=== PATIENT | male | born 1955 | race Caucasian/White ===

== ENCOUNTER 2017-03-05 20:38 | Inpatient (IN) ==
[2017-03-05] MEDS ORDERED: ATIVAN ONE (20:40)
[2017-03-05] MEDS ORDERED: ATIVAN IM ONE (20:57)
[2017-03-05 21:08] LABS: ALLEN TEST YES; BE -0.3 mmoll (-3.0-3.0); BLOOD TYPE ARTERIAL; DRAW SITE R BRACHIAL; METHB 1.2 % (0.0-1.5); MODALITY ROOM AIR; O2(CT) 18.3 mL/dL (15.0-23.0); PCO2(98.6) 38 mmHg (35-45); PO2(98.6) 84 mmHg (60-100); SAMPLE BLOOD; SAO2 99.4 % (95.0-100.0); THB 13.8 g/dL (11.5-17.4); pH(98.6) 7.41 (7.35-7.45)
[2017-03-05] MEDS ORDERED: NICODERM PATCH TD ONE (21:15)
[2017-03-05 21:34] LABS: MANUAL DIFF NEEDED? NO
[2017-03-05 21:39] LABS: BASO% 0.5 % (0.0-0.8); EOS# 0.12 X1000 (0.0-0.7); EOS% 1.4 % (0.0-10.0); HEMATOCRIT 40.8 % (42.0-52.0); HEMOGLOBIN 13.8 g/dL (14.0-18.0); IMM GRAN# 0.02 X1000 (0.0-0.04); IMM GRAN% 0.2 % (0.0-0.5); LYMPH# 0.74 X1000 (1.2-3.4); LYMPH% 8.3 % (20.5-51.1); MCH 32.3 PG (27-31); MCHC 33.8 g/dL (33-37); MCV 95.6 FL (81-99); MONO% 6.8 % (1.7-9.3); MPV 8.8 FL (7.4-10.4); NEUT% 82.8 % (42.2-75.2); PLT 372 X1000 (130-400); RBC 4.27 XMIL (4.7-6.1)
[2017-03-05 21:51] LABS: INR 0.99; PROTIME 10.4 Seconds (9.2-11.7); PTT 27.9 Seconds (22.0-36.0)
[2017-03-05] MEDS ORDERED: HALDOL PO ONE (21:52)
[2017-03-05 22:14] LABS: AGAP 16; ALBUMIN 4.1 g/dL (3.5-5.0); ALKALINE PHOSPHATASE 66 U/L (32-122); BUN 25 mg/dL (8-22); CALCIUM 10.2 mg/dL (8.8-10.2); CHLORIDE 100 mmol/L (98-107); CK PROFILE 45 U/L (24-204); COSMO 284; GOT 11 U/L (10-34); GPT < 5 U/L (10-44); POTASSIUM 4.1 mmol/L (3.5-5.1); SODIUM 140 mmol/L (136-145); TCO2 24 mmol/L (25-35); TOTAL BILIRUBIN 0.46 mg/dL (0.20-1.00); TOTAL PROTEIN 7.2 g/dL (6.3-8.3)
[2017-03-05] MEDS ORDERED: DECADRON IV ONE (23:05)
--- NOTE | 2017-03-05 23:37 | PROVIDER DOCUMENTATION ---
This chart was entered by Nicola Velasquez Scribe, acting as scribe for Alex Zamarripa MD. HPI-General Adult - General Stated Complaint: ams Time Seen by Provider: 03/05/17 20:40 Source: patient, family, EMS Allergies/Adverse Reactions: Patient Allergies Allergy/AdvReac Type Severity Reaction Status Date / Time No Known Allergies Allergy Verified 03/05/17 21:04 Home Medications: Home Medication List Medication Instructions Recorded Confirmed Last Taken Type Hydrochlorothiazide 1 tab PO DAILY 03/05/17 03/05/17 Unknown History SIMVAstatin [Zocor] 1 tab PO DAILY 03/05/17 03/05/17 Unknown History - History of Present Illness -Gen Adult Nature of Presenting Problems: Pt is a 61 yom who presents to ER via EMS after became worried because pt had become altered and was disoriented to person/place/time (asking his where she was, unaware she was in front of him). On exam, pt denies any illness , but (at bedside) reports pt is still altered. Location of Pain/Injury: reports: none Pain Radiation: reports: no radiation Quality of Pain: reports: none Severity: reports: moderate Onset/Duration: reports: unsure, this evening Timing: reports: still present Associated Symptoms: reports: constipation, headaches Similar Symptoms Previously?: No Recently seen or treated by another doctor?: No Review of Systems - Adult - REVIEW OF SYSTEMS - ADULT Constitutional: denies: chills, fever, fatique, night sweats, weight gain, weight loss Eyes: reports: no symptoms reported Ears, Nose, Mouth & Throat: reports: no symptoms reported Cardiovascular: reports: no symptoms reported Respiratory: reports: no symptoms reported Gastrointestinal: reports: constipation. denies: abdominal pain, hematemesis, diarrhea, difficulty swallowing, frequent heartburn, nausea, poor appetite, rectal bleeding, vomiting Genitourinary: reports: no symptoms reported Musculoskeletal: reports: no symptoms reported Integumentary: reports: no symptoms reported Neurological: reports: headache/migraines. denies: ataxia, dizziness/vertigo, loss of balance, numbness, paresthesia, seizure, slurred speech, syncope, tremors Psychiatric: reports: other (altered). denies: anxiety, anti-depressant use, alcohol/drug dependence, depression, emotional problems, insomnia, panic attacks , suicidal thoughts Endocrine: reports: no symptoms reported Hematologic/Lymphatic: reports: no symptoms reported Allergic/Immunologic: reports: no symptoms reported All Other Systems: Reviewed and Negative Past History - Adult - PAST MEDICAL HISTORY-ADULT Review of Records: reports: Nursing Assessment Review, Medications Reviewed - IMMUNIZATION STATUS Childhood Immunizations: See Nurse Assessment Flu Vaccine: See Nurse Assessment Physical Exam-General - PHYSICAL EXAM-ADULT Initial Vital Signs Reviewed: Yes - CONSTITUTIONAL General Appearance: appears well, alert, mild distress, obtunded. negative: no apparent distress - EYES Eyes: PERRL/EOMI, pink conjunctivae, fundi clear, no AV nicking - HEAD, EARS, NOSE, MOUTH & THROAT HENMT: normocephalic/atraumatic, moist mucous membranes, normal ENT inspection, TMs normal, pharynx normal - NECK Neck: non-tender, full range of motion, supple, normal inspection. negative: C- spine tenderness, limited range of motion, lymphadenopathy - RESPIRATORY Respiratory: chest non-tender, lungs clear, normal breath sounds, no pleuratic chest pain, no respiratory distress, no accessory muscle use. negative: wheezing - CARDIOVASCULAR Cardiovascular: normal peripheral pulses, regular rate, rhythm. negative: bradycardia, tachycardia, irregularly irregular - GASTROINTESTINAL (ABDOMEN) Abdominal Exam: normal bowel sounds, non tender, soft, no organomegaly, no pulsatile mass. negative: abnormal bowel sounds, distended, tenderness - MUSCULOSKELETAL Back Exam: normal inspection, no CVA tenderness, no vertebral tenderness. negative: CVA tenderness, decreased range of motion, ecchymosis, muscle spasm, swelling, vertebral tenderness Extremity: normal range of motion, non-tender, normal gait, normal inspection, no pedal edema, no calf tenderness, normal capillary refill. negative: deformity, erythema, inflammation, swelling, tenderness - SKIN Integumentary: normal color, normal turgor, warm/dry. 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 negative: facial droop, focal weakness, motor weakness, sensory deficit - PSYCHIATRIC Psych/Mental Status: normal thought content, normal thought process, disoriented x 3, disheveled. negative: normal mood/affect, oriented x 3 Progress - PLAN OF CARE/RESULTS Progress/Plan/Lab Results: Orders Category Date Time Status Lorazepam [Ativan] Med 03/05/17 20:40 Discontinued 2 mg .ROUTE .STK-MED ONE Result Diagrams: 03/05/17 21:15 03/05/17 21:15 - EKG 1 Time of EKG reading by physician:: 21:25 EKG Read and Signed by:: Alex Zamarripa EKG Interpretation (*Must complete 3 of following elements*): Abnormal ( Possible L atrial enlargement; Rightward axis; Septal infarct, age undetermined) Rate: 74 Rhythm: NSR - XRAY 1 XRAY: Bilateral XRAY Study: Chest Impression: See EMR Report XRAY Interpretation: Bilateral masses - ER Preliminary - CT/MRI 1 CT Study: Head Impression: See EMR Report CT Results: Bilateral metastatic disease with reactive edema 2 CT Study: Thorax Impression: See EMR Report CT Results: See report - CONSULTS/PCP/HOSPITALIST Notification #1 *Consult/PCP/Hospitalist*: Dr. Pino (Oncologist) Time Discussed: 23:16 Consult Disposition: Admit #2 Consult: Dr. Feng (Hospitalist) Time Discussed: 23:36 Consult Disposition: Admit Departure - Departure Time of Disposition Decision: 23:05 DIAGNOSIS: Primary lung cancer with metastasis from lung to other site, Altered mental state Disposition: ADMITTED INPATIENT 09 Certified Medical Emergency: Emergent Condition: Stable Referrals and Follow-Ups: Roberto Rocha [Primary Care Provider] - - Critical Care Note This patient required my direct personal management.: No This chart was documented by the indicated scribe, (Nicola Velasquez Scribe) and accurately reflects the services I performed and decisions made by me, Alex Hines MD, as attested by the provider's signature.
--- NOTE | 2017-03-06 00:51 | HISTORY AND PHYSICAL ---
PRIMARY CARE PROVIDER: Unknown. CHIEF COMPLAINT: Altered mental status. HISTORY OF PRESENTING ILLNESS: A 61-year-old male apparently was brought to the emergency department due to patient having mental status changes. No family is around, and patient is moderately altered, and not much information could be obtained from him, and remainder of history is obtained from the ER charting and previous records. At the time of my examination, the only thing he stated was he was okay. He will not answer any other questions, and he is moderately confused. PAST MEDICAL HISTORY: Unknown. PAST SURGICAL HISTORY: Unknown. ALLERGIES: No known drug allergies. CURRENT MEDICATIONS: As listed in [facility]. SOCIAL HISTORY: Unknown. FAMILY HISTORY: Unknown. REVIEW OF SYSTEMS: Unable to obtain due to patient's confusion. PHYSICAL EXAMINATION: GENERAL: The patient is resting comfortably. VITAL SIGNS: Temperature 97.7, pulse 78, respirations 20, blood pressure 139/ 79. He is sating 98%. HEENT: Atraumatic, normocephalic. NECK: No masses. CHEST: Clear to auscultation. CARDIOVASCULAR: Regular rate and rhythm. S1, S2. ABDOMEN: Soft. Positive bowel sounds. EXTREMITIES: No edema. NEURO: He is not cooperative with exam, and he is markedly confused. : No bladder distention. SKIN: Warm and good turgor. LABORATORIES AND STUDIES: WBCs 8.87, hemoglobin 13.8, hematocrit 40.8, platelets 372,000. Sodium 140, potassium 4.1, chloride 100, CO2 of 24, BUN is 25, creatinine 1.6, glucose is 109. ASSESSMENT: A 58-year-old male apparently was brought to the emergency department due to mental status changes. He had imaging done, which did show that he had bilateral lung masses, and also mets to his brain with some vasogenic edema. The case was discussed with oncologist, who recommended we start him on Decadron, and he will need hospitalization for further management. ASSESSMENT: 1. Altered mental status. 2. Lung cancer with brain mets. 3. Acute kidney injury. 4. Hypertension. PLAN: 1. We will admit patient to medical floor with telemetry. 2. Continue with neuro checks. 3. We will start patient on IV Decadron. 4. We will consult Oncology 5. We will monitor renal function. Continue with gentle hydration. 6. Monitor blood pressure, and add antihypertensive agents as needed. 7. The patient on DVT prophylaxis with SCDs. 8. We will continue to follow and reassess. cc: Omar Feng MD MTDValerie
[2017-03-06] MEDS ORDERED: ZOFRAN IV PRN (01:09)
[2017-03-06] MEDS ORDERED: NS 1,000 ML IV SCH (01:09)
[2017-03-06] MEDS ORDERED: TYLENOL PO PRN (01:09)
[2017-03-06] MEDS ORDERED: DECADRON IV SCH ×2 (06:00→14:00)
[2017-03-06 06:40] LABS: URINE CULTURE NEEDED? NO; URINE MICRO REVIEW NEEDED? NO; URINE SOURCE CLEAN CATCH
[2017-03-06 06:45] LABS: BILIRUBIN URINE SMALL (NEGATIVE); BLOOD URINE NEGATIVE (NEGATIVE); COLOR YELLOW; GLUCOSE URINE 100 mg/dL (NEGATIVE); LEUKOCYTES URINE NEGATIVE (NEGATIVE); NITRITE URINE NEGATIVE (NEGATIVE); PH URINE 5.5; PROTEIN URINE 30 mg/dL (NEGATIVE); SP GRAVITY URINE 1.026; TURBIDITY URINE CLEAR (CLEAR); UROBILINOGEN URINE NORMAL (NORMAL)
[2017-03-06 06:47] LABS: UR EPITHELIAL CELLS <10 /HPF (<10); URINE BACTERIA NEGATIVE /HPF; URINE RBC <10 /HPF (<10); URINE WBC <10 /HPF (<10)
[2017-03-06 06:59] LABS: UR AMPHETAMINES QUAL NONE DETECTED (NONE DETECT); UR BARBITUATES QUAL NONE DETECTED (NONE DETECT); UR BENZODIAZEPIN QUAL NONE DETECTED (NONE DETECT); UR CANNABINOIDS QUAL NONE DETECTED (NONE DETECT); UR COCAINE QUAL NONE DETECTED (NONE DETECT); UR METHADONE QUAL NONE DETECTED (NONE DETECT); UR OPIATES QUAL NONE DETECTED (NONE DETECT); UR OXYCODONE QUAL NONE DETECTED (NONE DETECT); UR PCP QUAL NONE DETECTED (NONE DETECT)
[2017-03-06 07:20] LABS: BASO% 0.2 % (0.0-0.8); HEMATOCRIT 40.5 % (42.0-52.0); HEMOGLOBIN 13.6 g/dL (14.0-18.0); LYMPH# 0.49 X1000 (1.2-3.4); LYMPH% 9.1 % (20.5-51.1); MANUAL DIFF NEEDED? YES; MCH 32.2 PG (27-31); MCHC 33.6 g/dL (33-37); MCV 95.7 FL (81-99); MONO# 0.02 X1000 (0.11-0.59); MONO% 0.4 % (1.7-9.3); MPV 8.8 FL (7.4-10.4); NEUT% 90.3 % (42.2-75.2); PLT 356 X1000 (130-400); RBC 4.23 XMIL (4.7-6.1)
[2017-03-06 07:34] LABS: CALCIUM 9.6 mg/dL (8.8-10.2); POTASSIUM 4.4 mmol/L (3.5-5.1)
[2017-03-06 07:53] LABS: LYMPHS 6 % (21-51); MONO 4 % (1-9)
--- NOTE | 2017-03-06 08:13 | Diag Imaging Result Document ---
PROCEDURE NAME: CHEST-PORTABLE - 03/05/2017 PORTABLE CHEST: COMPARISON: No comparison exam. FINDINGS: Heart size is normal. There is an apparent mass lesion at the right mid lung which measures 6-7 cm. There is an apparent mass lesion in the left mid lung which measures approximately 5 cm. Otherwise, there is no consolidation, pleural effusion, or pneumothorax identified. IMPRESSION: Apparent mass lesions at bilateral mid lungs. Please see report of subsequent CT thorax for further evaluation.
--- NOTE | 2017-03-06 09:20 | Diag Imaging Result Document ---
PROCEDURE NAME: HEAD W/O CONTRAST - 03/05/2017 CT HEAD WITHOUT CONTRAST: FINDINGS: No contrast administered per request of the referring provider. A dose reduction protocol was used. No comparison exam. There is bilateral edema, which is most extensive at the mid and lower cerebrum bilaterally. There is a suggestion of some scattered mass lesions, probably much of which is located at the left temporal lobe and measures approximately 2.3 x 1.9 cm. These findings are suspicious for metastatic disease. There is mass effect from the edema on the bilateral ventricular system. There is mild midline shift to the right, up to 2 mm. There is no hydrocephalus. There is no evidence of intracranial hemorrhage. IMPRESSION: Apparent metastatic disease with extensive edema in the bilateral mid and lower cerebrum. If more detailed evaluation of the apparent scattered mass lesions is desired, contrast- enhanced MRI or CT is recommended. A [facility] physician provided preliminary results at 12:04 a.m. on March 06, 2017.
[2017-03-06] MEDS: NICODERM PATCH TD SCH (09:37)
--- NOTE | 2017-03-06 09:43 | Diag Imaging Result Document ---
PROCEDURE NAME: CT THORAX W/O CONTRAST - 03/05/2017 CT THORAX WITHOUT CONTRAST: No contrast administered per request of the referring provider. A dose-reduction protocol was used. COMPARISON: No comparison CT thorax is available. FINDINGS: There are emphysematous changes. There is a 5.6 x 5 cm mass at the anterior lateral right upper lobe. The mass extends from the anterior superior margin of the right hilum to the anterolateral pleural margin. The mass has irregular margins and has central fluid containing cavity or necrosis. There is a 3.5 x 4.6 cm mass with irregular margins in the anterior aspect of the superior segment of the left lower lobe. These masses are suspicious for malignancy. These likely relate to primary lung malignancy, although metastatic disease from elsewhere is also a possibility. There is no consolidation, pleural effusion, or pneumothorax identified. There are no abnormally enlarged mediastinal lymph nodes identified. There are calcified granulomas in the right lung, calcified right hilar lymph nodes, and calcified granulomas in the liver and spleen which are consistent with old granulomatous disease. IMPRESSION: 1. Mass lesions at right upper lobe and superior segment of the left lower lobe. These are suspicious for malignancy and may represent a primary lung malignancy. Metastatic disease from elsewhere is also a consideration. 2. Emphysematous changes. A [facility] physician provided preliminary results at 12:09 a.m. on 03/06/2017. [facility]
--- NOTE | 2017-03-06 09:55 | PROGRESS NOTE ---
DATE: 03/06/2017 SUBJECTIVE: The patient is much more clear and oriented this morning after receiving Decadron last night. He is actually wanting to go home. The patient states that he is withdrawing from nicotine and wants to go smoke. Discussed with him that he has a patch on. The patient is still confused at times. He is unaware of why he came to the hospital or actually how he got here. He does remember his telling him he needed to come to the hospital. PLAN: We will decrease his Decadron at this point, as he is much more awake and alert. We will continue with nicotine patch, continue IV fluids, as he does have some renal failure. Uncertain if this is acute or chronic. Will discuss with Oncology, although it certainly does not appear if he is improved in the morning that he will need to stay in the hospital, as he does have family that will assist in his further workup. cc: Gaurav Winters MD
[2017-03-06] MEDS: ATIVAN IV PRN ×4 (09:59→23:31)
[2017-03-06] MEDS: HUMALOG SUBQ SCH ×3 (11:29→22:56)
[2017-03-06] MEDS ORDERED: CYANOCOBALAMIN IM ONE (12:46)
[2017-03-06] MEDS: DECADRON IV SCH ×3 (13:53→23:32)
--- NOTE | 2017-03-06 14:26 | CONSULTATION ---
DATE OF CONSULTATION: 03/06/2017 ADMITTING PHYSICIAN: Dr. Winters. REFERRING PHYSICIAN: Dr. Millicent Pino. CHIEF COMPLAINT: Evaluation for lung masses. HISTORY OF PRESENTING ILLNESS: 61-year-old man who is an active smoker with past medical history of bladder cancer treated with chemotherapy here in [place]. He does not know exactly who was the oncologist. Presented to the hospital and found to have on CAT scan lung masses in the right upper lobe and left lower lobe superior segment. PAST MEDICAL HISTORY: Bladder cancer and chemotherapy. PAST SURGICAL HISTORY: Noncontributory. SOCIAL HISTORY: Active smoker. 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 , living with . is present during evaluation. REVIEW OF SYSTEMS: As detailed in history of presenting illness, otherwise noncontributory. ALLERGIES: No known drug allergies. MEDICATIONS: Medications in the hospital include Zofran, nicotine patch, Ativan p.r.n., insulin, Decadron and Tylenol. FAMILY HISTORY: COPD and hypertension. PHYSICAL EXAMINATION: General Exam: He is awake, in bed. Family at bedside. Vital Signs: Noted. Head and Neck: Examined. Trachea midline. Chest Exam: Good entry bilaterally. Cardiac Examination: S1, S2. Abdomen: Nontender. Limbs: No pedal edema. Neurological: Awake and communicative. LABS AND INVESTIGATIONS: Chest CT scan images were reviewed with the right upper lobe peripheral lung mass and left lower lobe superior segment lung mass. CBC, CMP, ABGs reviewed. Coagulation profile reviewed. No significant changes. ASSESSMENT AND PLAN: A 61-year-old man with lung masses likely metastatic disease, history of bladder cancer treated with chemotherapy in the past. Dr. Millicent Pino is on the case. Has COPD and will require CT biopsy. After reviewing images probably the best initial approach will be CT biopsy for the right upper lobe peripheral lung mass and if that is inconclusive we will consider bronchoscopy for the left lower lobe superior segment mass. Continue bronchodilators and smoking cessation discussed. Outpatient followup arranged. Discussed with family and patient. cc: Ema Abdul MD
[2017-03-07] MEDS: DECADRON IV SCH ×5 (03:18→23:11)
[2017-03-07] MEDS: ATIVAN IV PRN ×4 (04:24→23:12)
[2017-03-07] MEDS ORDERED: HALDOL IV PRN (05:24)
[2017-03-07] MEDS: NICODERM PATCH TD SCH (05:53)
[2017-03-07] MEDS: HALDOL IV PRN ×3 (05:54→17:11)
[2017-03-07] MEDS: HUMALOG SUBQ SCH ×3 (06:27→17:11)
[2017-03-07 06:49] LABS: HEMOGLOBIN 13.1 g/dL (14.0-18.0); MCH 32.2 PG (27-31); MCHC 33.6 g/dL (33-37); MCV 95.8 FL (81-99); MPV 8.8 FL (7.4-10.4); RBC 4.07 XMIL (4.7-6.1)
[2017-03-07 07:01] LABS: AGAP 15; ALBUMIN 3.6 g/dL (3.5-5.0); ALKALINE PHOSPHATASE 56 U/L (32-122); BUN 26 mg/dL (8-22); CALCIUM 9.3 mg/dL (8.8-10.2); CHLORIDE 101 mmol/L (98-107); COSMO 278; GOT 11 U/L (10-34); GPT < 5 U/L (10-44); MAGNESIUM 1.8 mg/dL (1.5-2.7); POTASSIUM 4.3 mmol/L (3.5-5.1); SODIUM 136 mmol/L (136-145); TCO2 20 mmol/L (25-35); TOTAL BILIRUBIN 0.23 mg/dL (0.20-1.00); TOTAL PROTEIN 6.4 g/dL (6.3-8.3)
[2017-03-07 07:09] LABS: HEMOGLOBIN A1C 5.5 % (4.8-6.0)
--- NOTE | 2017-03-07 10:09 | PROGRESS NOTE ---
DATE: 03/07/2017 SUBJECTIVE: Patient is still somewhat confused this morning. Seems to be unaware of his current diagnosis. States he is waiting on his son and to come pick him up. Denies any other complaints. Denies any GI or issues otherwise. OBJECTIVE: Vital signs: Temp 98.2 degrees, pulse 69, respiratory 20, BP 123/70, saturating 99% on room air. General: Patient is awake, alert. He is currently in no real respiratory distress. He is sitting in wheelchair. HEENT: Normocephalic. Neck: Supple. CV: Regular rate. Chest: Clear, nonlabored. Abdomen: Soft, nondistended. Extremities: Patient moves all extremities but he is generally weak. Neurologic: No focal changes from yesterday's exam. Patient is awake, alert. He is aware that he is in the hospital but is unaware of why. LABS: WBC 13, hemoglobin and hematocrit 13 and 39. Creatinine 1.5, glucose 124. B12 241. ASSESSMENT: 1. Lung cancer with brain metastases. 2. Leukocytosis secondary to Decadron. 3. Altered mental status secondary to brain metastases. Appears to be improving with the Decadron. 4. B12 deficiency. He was given 1 dose of B12 yesterday. 5. Kidney failure. Likely chronic. Has been stable. 6. Chronic tobacco abuse. We will continue nicotine patch. 7. Elevated blood sugar. The patient has no previous history of diabetes. In fact, his A1c is 5.5. This is likely secondary to Decadron. Will continue sliding scale insulin. 8. Patient is scheduled for biopsy in the a.m. to further delineate the cause of his lung mass and brain metastases. cc: Gaurav Winters MD
[2017-03-08] MEDS: DECADRON IV SCH ×5 (03:38→12:07)
[2017-03-08] MEDS ORDERED: STERILE WATER INJ. INJ PRN (04:12)
[2017-03-08] MEDS ORDERED: GEODON IM PRN (04:12)
[2017-03-08] MEDS: HUMALOG SUBQ SCH ×3 (04:30→11:28)
[2017-03-08] MEDS: NICODERM PATCH TD SCH (05:21)
[2017-03-08 07:46] LABS: AGAP 14; BUN 28 mg/dL (8-22); CALCIUM 9.6 mg/dL (8.8-10.2); CHLORIDE 101 mmol/L (98-107); COSMO 278; POTASSIUM 4.3 mmol/L (3.5-5.1); SODIUM 136 mmol/L (136-145); TCO2 21 mmol/L (25-35)
[2017-03-08 07:48] LABS: INR 1.02; PROTIME 10.7 Seconds (9.2-11.7); PTT 26.8 Seconds (22.0-36.0)
[2017-03-08 07:52] LABS: HEMATOCRIT 38.3 % (42.0-52.0); HEMOGLOBIN 13.2 g/dL (14.0-18.0); IMM GRAN# 0.03 X1000 (0.0-0.04); IMM GRAN% 0.3 % (0.0-0.5); LYMPH# 0.35 X1000 (1.2-3.4); LYMPH% 3.2 % (20.5-51.1); MANUAL DIFF NEEDED? YES; MCH 32.4 PG (27-31); MCHC 34.5 g/dL (33-37); MCV 94.1 FL (81-99); MONO# 0.34 X1000 (0.11-0.59); MONO% 3.1 % (1.7-9.3); MPV 8.9 FL (7.4-10.4); NEUT% 93.4 % (42.2-75.2); PLT 391 X1000 (130-400); RBC 4.07 XMIL (4.7-6.1)
[2017-03-08 07:55] LABS: BANDS 4 % (0-1); LYMPHS 2 % (21-51); MONO 2 % (1-9)
[2017-03-08] MEDS: HALDOL IV PRN (12:13)
--- NOTE | 2017-03-08 13:57 | Diag Imaging Result Document ---
PROCEDURE NAME: CT GUIDED BIOPSY LUNG - 03/08/2017 COMPARISON: CT chest dated 03/05/2017. FINDINGS: The risks, benefits, and alternatives were discussed with the patient and the patient's and informed consent was obtained. The patient was placed in an oblique supine position and local anesthesia was achieved with 1% lidocaine solution. Using CT guidance, a coaxial biopsy needle system was used to obtain four 2.3 cm core biopsies from a large mass in the anterior segment of the right upper lobe. There were no known complications. A chest radiograph is to follow. IMPRESSION: Technically successful CT-guided right lung biopsy.
[2017-03-08 14:57] VITALS: BP 150/75
--- NOTE | 2017-03-08 15:28 | EKG Report ---
Test Performed on : 03/05/2017 9:25:32 PM Test Reason : AMS Blood Pressure : / mmHG Vent. Rate : 074 BPM Atrial Rate : 074 BPM P-R Int : 146 ms QRS Dur : 078 ms QT Int : 364 ms P-R-T Axes : 067 104 052 degrees QTc Int : 404 ms Normal sinus rhythm. Possible Left atrial enlargement Rightward axis Septal infarct (cited on or before 05-MAR-2017) Abnormal ECG When compared with ECG of 05-MAR-2017 21:02, (Unconfirmed) Previous ECG has undetermined rhythm, needs review Questionable change in QRS duration Criteria for Inferior infarct are no longer present Questionable change in initial forces of Anterolateral leads Unconfirmed Result
--- NOTE | 2017-03-08 16:37 | PROGRESS NOTE ---
DATE: 03/08/2017 SUBJECTIVE: The patient had a CT-guided lung biopsy today. OBJECTIVE: Vital Signs: Temperature 98.4 degrees, blood pressure 150/72, heart rate 68, respirations 20, O2 saturations 97% on room air. General: This is an elderly male lying in bed in no acute distress. Head: Normocephalic, atraumatic. Heart: S1, S2. Normal. Regular rate and rhythm. Lungs: Poor air entry bilaterally. Abdomen: Positive bowel sounds. Soft, nontender, nondistended. Extremities: No edema. No cyanosis. LABS: White blood cell count 10, hemoglobin 13, hematocrit 38, platelets 391,000. INR 1.0. Sodium 136, potassium 4.3, chloride 101, CO2 21, BUN 28, creatinine 1.2, glucose 113. ASSESSMENT AND PLAN: 1. Lung cancer with brain metastasis. The patient had a CT-guided lung biopsy today. We are currently awaiting on the final report of the postprocedure chest x-ray. The patient will follow up with the radiation oncologist as outpatient and Dr. Pino. 2. Brain metastasis. The patient will continue on Decadron which will then be weaned by the radiation oncologist after radiation has been started. 3. Steroid induced leukocytosis. Aware. 4. Acute kidney injury. Improved. 5. Tobacco dependence. The patient has been counseled about smoking cessation. 6. Steroid induced hyperglycemia. The patient's A1c is 5.5. However, the patient's blood sugars will be slightly elevated while on Decadron. 7. Disposition. The patient will be discharged home today once the final report is available on the postprocedure chest x-ray. cc: Deena Maynard MD
--- NOTE | 2017-03-09 04:29 | DISCHARGE SUMMARY ---
ADMISSION DATE: 03/06/2017 DISCHARGE DATE: 03/08/2017 FINAL DISCHARGE DIAGNOSES: 1. Suspected lung cancer, with brain metastasis. 2. Metabolic encephalopathy. 3. Acute kidney injury. 4. Steroid-induced leukocytosis. 5. Steroid-induced hyperglycemia. 6. Chronic tobacco dependence. CONSULTATIONS REQUESTED DURING THIS HOSPITAL STAY: 1. Oncology consultation with Dr. Pino. 2. Pulmonary consultation with Dr. Abdul. IMAGING PERFORMED DURING THIS HOSPITAL STAY: 1. Head CT performed on 03/05/2017 that revealed metastatic disease, with extensive edema in the bilateral mid and lower cerebrum. 2. Chest CT without contrast which revealed mass lesions at the right upper lobe and superior segment of the left lower lobe, suspicious for malignancy. PROCEDURES PERFORMED DURING THIS HOSPITAL STAY: A CT-guided lung biopsy performed on 03/08/2017. HOSPITAL COURSE: Mr. Crawford is a 61-year-old male with a history of tobacco dependence. He was brought to the ER with altered mental status. While in the ER, the patient underwent a CT of the head and the chest that revealed a possible lung cancer, as well as brain metastasis, and the patient was also noted to be in acute renal failure. The patient was admitted, and pulmonary, as well as oncology, were consulted. The patient was started on Decadron due to edema seen on the CT of the head. The patient underwent a CT-guided lung biopsy on 03/08/2017. After the biopsy, the patient decided that he wanted to involve hospice services, and stated that he had not decided whether he wanted to start chemotherapy, but stated that he wanted to go home and think about it before making a final decision. Radiation oncology was also consulted, and the patient will follow up with them as an outpatient to initiate radiation therapy if he decides to. The patient's post procedure chest x-ray was noted to be negative for a pneumothorax. The patient will need to continue on Decadron, as ordered by the oncologist, until he is weaned off of it by the radiation oncologist. DISCHARGE MEDICATIONS: 1. Decadron 4 mg p.o. every 6 hours. 2. Zocor 1 tab oral daily. 3. Hydrochlorothiazide 12.5 mg p.o. daily. DISCHARGE DIET: Regular diet. ACTIVITY: As tolerated. FOLLOWUP INSTRUCTIONS: The patient is scheduled to follow up with Dr. Abdul on 03/16/2017 at 1:30 p.m. The patient will also need to follow up with Dr. Pino, as scheduled by her clinic. The patient will follow up with Dr. Sree Stuart for discussion of radiation therapy, as scheduled by his clinic. cc: Deena Maynard MD
--- NOTE | 2017-03-09 07:27 | Diag Imaging Result Document ---
PROCEDURE NAME: CHEST-2 VIEWS - 03/08/2017 INSPIRATORY AND EXPIRATORY AP RADIOGRAPH OF THE CHEST: COMPARISON: 03/05/2017. FINDINGS: Bilateral lung masses are again noted. There is no evidence of pneumothorax, status post right lung biopsy. Otherwise, the chest is stable. IMPRESSION: Stable chest with no evidence of pneumothorax, status post right lung biopsy.
--- NOTE | 2017-03-09 15:41 | CONSULTATION ---
DATE OF CONSULTATION: 03/06/2017 CONSULTATION REQUESTED BY: Dr. Omar Feng. Consultation is for new lung mass with brain mets. HISTORY OF PRESENT ILLNESS: Mr. Crawford is a 61-year-old, male who appears to have presented to the emergency department with altered mental status. During the workup, a CT scan was done, and he was found to have a met in his brain with vasogenic edema. Further scanning showed him to have bilateral lung masses as well. The patient is currently in the room by himself. He is still rather confused and altered. Most of the information provided in this consultation note is taken from the chart. PAST MEDICAL HISTORY: Patient reports that he has taken hypertensive medications off and on. When asked if he had any health problems, the patient reported that he has no other health issues. PAST SURGICAL HISTORY: None known of as of right now. SOCIAL HISTORY: Patient does say that he has family and I believe he said he has a and maybe a daughter who have been actually in his room earlier but no longer at bedside. Patient reports that he has smoked 2 packs of cigarettes per day "for a long time." FAMILY HISTORY: Unknown. Patient unable to tell me anything about his family history. REVIEW OF SYSTEMS: Unable to obtain as the patient continues to remain rather confused. He does continually discuss his wanting to smoke. PHYSICAL EXAM: Vital Signs: Temperature 97.5 degrees, heart rate 69, respirations 18, blood pressure 113/64, O2 saturations 98% on room air. General: This is a male who is sitting up in the hospital bed. He is fully clothed. He is not agitated and does not appear in any acute distress. Again, he is in the room by himself and there is no family or anyone else by bedside. HEENT: Head appears to be normocephalic atraumatic. Eyes: Pupils equal, round, reactive. Sclerae anicteric. Ears, nose, throat, neck, and mouth: Oral mucosa appears to be normal. Trachea is midline. Gross auditory acuity is intact. Cardiovascular: S1, S2 heard. No murmurs, gallops, or rubs appreciated. Regular rate and rhythm. Chest: Is essentially clear to auscultation bilaterally. Normal respiratory effort. Gastrointestinal: Abdomen is soft, nondistended. Positive bowel sounds. Musculoskeletal: No obvious bony abnormalities. Extremities: Patient has no swelling or edema. Skin: No petechiae, no rash. Neurologic: Patient is alert. He is oriented x1 to self. Not agitated. LABORATORY STUDIES: White blood cells 5.39, hemoglobin 13.6, hematocrit 40.5, platelets 356,000. Sodium 140, potassium 4.4, chloride 103, CO2 19, BUN 25, creatinine 1.6, glucose 139. Head CT showed him to have a metastatic lesion with extensive edema and a chest CT showed him to have a right upper lobe and superior segment of the left lower lobe masses. ASSESSMENT AND PLAN: 1. New lung masses with a brain met. Check LDH and CEA. Go ahead and consult Pulmonology for biopsy. We will also consult Radiation Oncology to discuss radiation therapy. Plan will be for an outpatient PET scan. 2. Altered mental status, secondary to brain mets. The patient will need to continue high-dose steroids with dexamethasone 4 mg q.6 hours. Consult Radiation Oncology as per above. 3. DEDRA. Continue IV fluids. Avoid any nephrotoxic agents at this time. 4. Vitamin B12 deficiency. Labs revealed the patient to have a low vitamin B12 level at 241. Go ahead and give the patient a dose of vitamin B12 at this time. 5. Tobacco dependence, current smoker of possibly 2 packs of cigarettes per day. The patient already has a nicotine patch ordered. Continue at this time. We want to thank you for consulting us on Mr. Crawford while he is at [facility]. We will continue to follow along including the pathology results and make further recommendations per his hospital course. Dictated by ADELINE Castaneda for Millicent Pino MD cc: Millicent Pino MD
== END 2017-03-08 17:15 | disposition home or self-care (01) ==
LOC: ED 20:38 → MERGE 03-06 00:43 → 3N 03-06 00:43 → SUATTDRO 03-06 00:43 → 3N 03-06 00:56
PROVIDERS: ATTEND Internal Medicine